=== PATIENT | male | born 1990 | race African-American/Black ===

== ENCOUNTER 2019-11-19 16:09 | Emergency (ER) | payer SELFPAY ==
[2019-11-19 17:07] VITALS: BP 125/66
--- NOTE | 2019-11-19 17:24 | UC ---
Rectal Pain HPI - HPI Summary HPI Summary: 29 yo male with severe rectal pain x 3 days hx pilonidal cyst states he feels swollen in his rectum no fever pain 7/10 on side or standing 10/10 seated or while having bowel movement - History Of Current Complaint Chief Complaint: UCSkin Stated Complaint: SKIN COMPLAINT Time Seen by Provider: 11/19/19 16:58 Hx Obtained From: Patient Onset/Duration: Gradual Onset, Lasting Days Timing: Constant Severity Initially: Mild Severity Currently: Severe Pain Intensity: 10 Pain Scale Used: 0-10 Numeric Location Of Pain: Rectal Character: Sharp Aggravating Factor(s): Bowel Movement, Sitting Alleviating Factor(s): Nothing Associated Signs And Symptoms: Positive: Negative - Allergies/Home Medications Allergies/Adverse Reactions: Allergies Allergy/AdvReac Type Severity Reaction Status Date / Time No Known Allergies Allergy Verified 11/19/19 17:00 Home Medications: Home Medications NK [No Home Medications Reported] 11/19/19 [History Confirmed 11/19/19] PMH/Surg Hx/FS Hx/Imm Hx Previously Healthy: Yes - Surgical History Surgical History: None - Social History Alcohol Use: Rare Substance Use Type: Marijuana Substance Use Comment - Amount & Last Used: daily Smoking Status (MU): Former Smoker When Did the Patient Quit Smoking/Using Tobacco: 2018 Review of Systems All Other Systems Reviewed And Are Negative: Yes Constitutional: Positive: Negative Skin: Positive: Negative Eyes: Positive: Negative ENT: Positive: Negative Respiratory: Positive: Negative Cardiovascular: Positive: Negative Gastrointestinal: Positive: Negative Genitourinary: Positive: Negative Motor: Positive: Negative Neurovascular: Positive: Negative Musculoskeletal: Positive: Negative Neurological: Positive: Negative Psychological: Positive: Negative Physical Exam Triage Information Reviewed: Yes Appearance: Well-Appearing, No Pain Distress, Well-Nourished Vital Signs: Initial Vital Signs Temp 97.2 F 11/19/19 17:01 Pulse 86 11/19/19 17:01 Resp 18 11/19/19 17:01 BP 125/66 11/19/19 17:01 Pulse Ox 100 11/19/19 17:01 Vital Signs Reviewed: Yes Eyes: Positive: Conjunctiva Clear ENT: Positive: Hearing grossly normal. Negative: Nasal congestion, Nasal drainage, Trismus, Muffled voice, Hoarse voice Neck: Positive: Supple, Nontender, No Lymphadenopathy Respiratory: Positive: Lungs clear, Normal breath sounds, No respiratory distress, No accessory muscle use Cardiovascular: Positive: RRR, No Murmur Abdomen Description: Positive: Nontender, Other: - no gluteal or pilonidal abscess noted/left buttock tender Bowel Sounds: Positive: Present Musculoskeletal: Positive: ROM Intact, No Edema Neurological: Positive: Alert Psychological Exam: Normal Skin Exam: Normal Rectal Pain Course/Dx - Course Course Of Treatment: Concerned re deep abscess suggest going to ER I spoke to Dr. Mock [facility] ER will go there via POV - Differential Dx/Diagnosis Provider Diagnosis: Anal or rectal pain Discharge ED - Sign-Out/Discharge Documenting (check all that apply): Patient Departure All imaging exams completed and their final reports reviewed: No Studies - Discharge Plan Condition: Stable Disposition: HOME Referrals: No Primary Care Phys,NOPCP [Primary Care Provider] - Additional Instructions: I suggest you go to the ER for evaluation of your severe rectal pain - Billing Disposition and Condition Condition: STABLE Disposition: Home
== END 2019-11-19 17:22 | disposition home or self-care (01) ==
LOC: UCCORT 16:09
DX: K62.89 Other specified diseases of anus and rectum (principal); Z87.19 Personal history of other diseases of the digestive system; Z87.891 Personal history of nicotine dependence
CPT/HCPCS: 99202; G0463